=== PATIENT | male | born 1965 | race Caucasian/White ===

== ENCOUNTER 2019-10-24 07:53 | Day surgery (SDC) | payer BC, OTHER ==
[~2019-10-24 07:53] MED LIST: Lactated Ringers 1,000 ML IV SCH; Lidocaine 1% 4 ML ONE; Lidocaine 1%/Sod Bicarbonate in NS 8.4% 1 ML Syringe IDERM PRN; Midazolam 1 MG/ML 2 ML SDV ONE; Propofol 200 MG/20 ML SDV ONE; Sodium Chloride 0.9% 10 ML Syringe FLUSH PRN; ceFAZolin 1 GM Vial ONE; fentaNYL 100 MCG/2 ML SDV ONE
[2019-10-24] MEDS ORDERED: HYDROmorphone 0.5 MG/0.5 ML Syringe IVPUSH PRN (08:06)
[2019-10-24] MEDS ORDERED: fentaNYL 100 MCG/2 ML SDV IVPUSH PRN (08:06)
[2019-10-24] MEDS ORDERED: Bupivacaine 0.25% 10 ML SDV ONE (08:11)
--- NOTE | 2019-10-24 08:20 | PCM.PREANE ---
Preanesthetic Assessment - Anesthesia/Transfusion/Family Hx Anesthesia History: Prior Anesthesia Without Reaction Transfusion History: No Prior Transfusion(s) - Review of Systems General: No Symptoms Pulmonary: No Symptoms Cardiovascular: No Symptoms Gastrointestinal: No Symptoms Neurological: No Symptoms Other: Reports: None - Physical Assessment Vital Signs: Last Vital Signs Temp 97.2 F 10/24/19 07:50 Pulse 74 10/24/19 07:50 Resp 16 10/24/19 07:50 BP 121/80 10/24/19 07:50 Pulse Ox 94 L 10/24/19 07:50 ASA Class: 2 Mental Status: Alert & Oriented x3 Airway Class: Mallampati = 3 Dentition: Reports: Normal Dentition, Torreon(s), Bridge Thyro-Mental Finger Breadths: 3 Mouth Opening Finger Breadths: 3 ROM/Head Extension: Full Lungs: Clear to Auscultation, Normal Respiratory Effort Cardiovascular: Regular Rate, Regular Rhythm - Lab Values: Laboratory Last Values SARS Virus RNA (PCR) Negative (NEGATIVE) 10/24/19 06:40 MRSA (PCR) Negative 10/10/19 14:54 - Allergies Allergies/Adverse Reactions: Allergies Allergy/AdvReac Type Severity Reaction Status Date / Time No Known Allergies Allergy Verified 10/23/19 12:44 - Acknowledgements Anesthesia Type Planned: General Anesthesia Pt an Appropriate Candidate for the Planned Anesthesia: Yes Alternatives and Risks of Anesthesia Discussed w Pt/Guardian: Yes Pt/Guardian Understands and Agrees with Anesthesia Plan: Yes PreAnesthesia Questionnaire Musculoskeletal History: Reports: Osteoarthritis Endocrine/Metabolic History: Reports: Obesity/BMI 30+ - Past Surgical History Musculoskeletal Surgical History: Reports: Arthroscopic Knee - SUBSTANCE USE Smoking Status *Q: Never Smoker Recreational Drug Use History: No - HOME MEDS Home Medications: Home Meds Cholecalciferol (Vitamin D3) [Vitamin D3] 5,000 units PO DAILY 10/23/19 [History] Multivitamin [Multivitamins] 1 cap PO DAILY 10/23/19 [History] Naproxen Sodium [Aleve] 220 mg PO DAILY 10/23/19 [History] Zinc 50 mg PO DAILY 10/23/19 [History] - CURRENT (IN HOUSE) MEDS Current Meds: Current Medications Fentanyl (Sublimaze) 100 mcg IVPUSH Q5M PRN PRN Reason: Pain Stop: 10/24/19 12:00 Hydromorphone HCl (Dilaudid) 0.5 mg IVPUSH Q10M PRN PRN Reason: Pain (severe 7-10) Stop: 10/24/19 12:00 Lactated Ringer's (Ringers, Lactated) 1,000 mls @ 125 mls/hr IV ASDIRECTED DUDLEY Stop: 10/24/19 23:00 Lidocaine/Sodium Bicarbonate (Buffered Lidocaine 1% In Ns 8.4%) 0.25 ml IDERM ONETIME PRN PRN Reason: Prior to IV Start Stop: 10/24/19 18:00 Sodium Chloride (Saline Flush) 10 ml FLUSH ASDIRECTED PRN PRN Reason: Keep Vein Open Stop: 10/24/19 18:00 Discontinued Medications Bupivacaine HCl (Sensorcaine-Mpf 0.25%) Confirm Administered Dose 30 ml .ROUTE .STK-MED ONE Stop: 10/24/19 08:12 Cefazolin Sodium (Ancef) Confirm Administered Dose 2 gm .ROUTE .STK-MED ONE Stop: 10/24/19 07:48 Fentanyl (Sublimaze) Confirm Administered Dose 100 mcg .ROUTE .STK-MED ONE Stop: 10/24/19 07:45 Lidocaine HCl (Xylocaine-Mpf 1%) Confirm Administered Dose 4 mls @ as directed .ROUTE .STK-MED ONE Stop: 10/24/19 07:48 Midazolam HCl (Versed 1 Mg/Ml) Confirm Administered Dose 2 mg .ROUTE .STK-MED ONE Stop: 10/24/19 07:45 Propofol (Diprivan 20 Ml) Confirm Administered Dose 200 mg .ROUTE .STK-MED ONE Stop: 10/24/19 07:44
[2019-10-24] MEDS ORDERED: fentaNYL 100 MCG/2 ML SDV ONE (08:23)
[2019-10-24] MEDS ORDERED: Midazolam 1 MG/ML 2 ML SDV ONE (08:23)
[2019-10-24] MEDS ORDERED: EPINEPHrine 1 MG/ML 30 ML MDV IV ONE (08:45)
[2019-10-24] MEDS ORDERED: Lidocaine 1% 4 ML ONE (08:51)
[2019-10-24] MEDS ORDERED: Ondansetron 4 MG/2 ML SDV ONE (09:07)
[2019-10-24] MEDS ORDERED: Lactated Ringers 1,000 ML ONE (09:21)
[2019-10-24] MEDS ORDERED: Lidocaine 2% with EPINEPHrine 1:200,000 20 ML SDV ONE (09:37)
--- NOTE | 2019-10-24 09:50 | PCM.POSTAN ---
POST ANESTHESIA ASSESSMENT - MENTAL STATUS Mental Status: Alert, Oriented - VITAL SIGNS Vital Signs: Last Vital Signs Temp 97.2 F 10/24/19 09:29 Pulse 67 10/24/19 09:44 Resp 16 10/24/19 09:44 BP 133/79 10/24/19 09:44 Pulse Ox 96 10/24/19 09:44 - RESPIRATORY Respiratory Status: Respiratory Rate WNL, Airway Patent, O2 Saturation Stable, Supplemental Oxygen - CARDIOVASCULAR CV Status: Pulse Rate WNL, Blood Pressure Stable - GASTROINTESTINAL GI Status: No Symptoms - PAIN Pain Score: 0 - POST OP HYDRATION Hydration Status: Adequate & Stable - OBSERVATIONS Free Text/Narrative:: bleeding frenulum abrasion under tongue, a gauze soaked in 2% lidocaine with 1:200k epi placed under tongue
--- NOTE | 2019-10-24 11:48 | PCM48HPAN ---
Post Anesthesia Note - EVALUATION WITHIN 48HRS OF ANESTHETIC Vital Signs in Normal Range: Yes Patient Participated in Evaluation: Yes Respiratory Function Stable: Yes Airway Patent: Yes Cardiovascular Function Stable: Yes Hydration Status Stable: Yes Pain Control Satisfactory: Yes Nausea and Vomiting Control Satisfactory: Yes Mental Status Recovered: Yes Vital Signs: Last Vital Signs Temp 97.2 F 10/24/19 09:29 Pulse 58 L 10/24/19 10:45 Resp 16 10/24/19 10:45 BP 129/93 H 10/24/19 10:45 Pulse Ox 95 10/24/19 10:45 - COMMENTS/OBSERVATIONS Free Text/Narrative:: Explanation given about the abrasion on the frenulum , to avoid hot and spicy food for the next couple of days. Patient is being discharged to home.
--- NOTE | 2019-10-30 07:22 | PCM.OPNOTE ---
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
--- NOTE | 2019-10-30 11:17 | OR ---
DATE OF OPERATION: 10/24/2019 SURGEON: Oscar Garner MD OPERATION PERFORMED: Right knee video arthroscopy, partial medial meniscectomy and chondroplasty of femoral condyle. PREOPERATIVE DIAGNOSIS: Right knee medial meniscus tear with medial compartmental chondromalacia. POSTOPERATIVE DIAGNOSIS: Right knee medial meniscus tear with medial compartmental chondromalacia. ANESTHESIA: General LMA with local. ANESTHESIA PROVIDER: Estuardo Causey CRNA COMPETITIVE ATHLETE: None. ESTIMATED BLOOD LOSS: 5 mL. COMPLICATIONS: None. CONDITION: Stable. DESCRIPTION OF PROCEDURE: The patient was identified in the preoperative holding area. Proper site was marked and identified by the surgeon. The patient was taken back to the operative theater, where after adequate anesthesia, the patient's left lower extremity was placed in a well leg north. Right lower extremity had a nonsterile tourniquet applied and was placed in a C-clamp north. Foot of the bed was then lowered. Right lower extremity was then sterilely prepped and draped in usual sterile fashion. OR time-out was then performed. The patient received 2 g IV Ancef. Right lower extremity was exsanguinated and tourniquet was insufflated to 250 mmHg. Standard anterior lateral portal incision was made. Scope trocar was introduced. The patient had a grade 2 chondromalacia of the patellofemoral joint. Attention was turned to the medial compartment. With the use of a spinal needle, anteromedial portal was created. The patient was noted to have a large amount of grade 4 chondromalacia with eburnated bone on the medial femoral condyle and a tear of the posterior 3rd horn of the medial meniscus. At this time, a partial medial meniscectomy of the entire posterior 3rd of the horn of the medial meniscus was undertaken and a chondroplasty of the medial femoral condyle and any loose cartilaginous flaps was done. ACL was intact in the notch. Lateral compartment showed minimal to no changes. Excess saline was drained from the knee. 3-0 nylon suture was used for closure of the skin. The patient tolerated the procedure well and was sent to PACU in stable condition. MMODAL /[id number]
== END 2019-10-24 11:45 | disposition home or self-care (01) ==
LOC: JD.SDS 07:53
PROVIDERS: ATTEND Orthopaedic Surgery
DX: S83.241A Other tear of medial meniscus, current injury, right knee, initial encounter (principal); M22.41 Chondromalacia patellae, right knee; E66.9 Obesity, unspecified; F32.9 Major depressive disorder, single episode, unspecified; Z11.59 Encounter for screening for other viral diseases; Z79.899 Other long term (current) drug therapy; Z68.31 Body mass index [BMI] 31.0-31.9, adult
CPT/HCPCS: 29881; 87635; 87641; J0171; J0690; J2001; J2250; J2405; J2704; J3010; J3490; J7120; 01400; U0002

== ENCOUNTER → 2020-02-25 | Day surgery (SDC) | payer BC ==
[~2020-02-25] MED LIST changes: +Acetaminophen 325 MG Tab PO SCH; +EPINEPHrine 1 MG/ML SDV ONE; +Ketorolac 30 MG/ML SDV ONE; -Lactated Ringers 1,000 ML IV SCH; +Lactated Ringers 1,000 ML ONE; +Morphine 8 MG, EPINEPHrine 0.3 MG, Cefuroxime 750 MG, Ketorolac 30 MG, Sodium Chloride ... PRN; +Ondansetron 4 MG/2 ML SDV IVPUSH PRN; +Ondansetron 4 MG/2 ML SDV ONE; +Pregabalin 25 MG Cap PO SCH; +Ropivacaine 0.5% 5 MG/ML 30 ML SDV ONE; +ePHEDrine Sulfate/0.9% NaCl/Pf 25 MG/5 ML SYRINGE IV ONE; +fentaNYL 100 MCG/2 ML SDV IVPUSH PRN; +oxyCODONE 5 MG Tab PO PRN; +oxyCODONE ER 10 MG TAB.ER PO SCH
[2020-02-25] MEDS: Lactated Ringers 1,000 ML IV SCH ×2 (11:20→15:57)
--- NOTE | 2020-02-25 11:35 | PCM.PREANE ---
Preanesthetic Assessment - Anesthesia/Transfusion/Family Hx Anesthesia History: Prior Anesthesia Without Reaction Family History of Anesthesia Reaction: No Transfusion History: No Prior Transfusion(s) - Review of Systems General: No Symptoms Pulmonary: No Symptoms, Other (JARVIS) Cardiovascular: No Symptoms, Other (EKG demonstrates SB) Gastrointestinal: No Symptoms Neurological: No Symptoms Other: Reports: Depression - Physical Assessment NPO Status Date: 02/25/20 NPO Status Time: 01:00 Vital Signs: Last Vital Signs Temp 36.6 C 02/25/20 11:10 Pulse 74 02/25/20 11:10 Resp 16 02/25/20 11:10 BP 122/83 02/25/20 11:10 Pulse Ox 96 02/25/20 11:10 Height: 1.85 m Weight: 106.594 kg ASA Class: 2 Mental Status: Alert & Oriented x3 Airway Class: Mallampati = 2 Dentition: Reports: Normal Dentition Thyro-Mental Finger Breadths: 3 Mouth Opening Finger Breadths: 3 ROM/Head Extension: Full Lungs: Clear to Auscultation, Normal Respiratory Effort Cardiovascular: Regular Rate, Regular Rhythm - Lab Values: Laboratory Last Values MRSA (PCR) Negative 02/13/20 14:40 - Allergies Allergies/Adverse Reactions: Allergies Allergy/AdvReac Type Severity Reaction Status Date / Time No Known Allergies Allergy Verified 02/22/20 12:51 - Blood Blood Available: No Product(s) Available: None - Anesthesia Plan Pre-Op Medication Ordered: None - Acknowledgements Anesthesia Type Planned: Spinal Pt an Appropriate Candidate for the Planned Anesthesia: Yes Alternatives and Risks of Anesthesia Discussed w Pt/Guardian: Yes Pt/Guardian Understands and Agrees with Anesthesia Plan: Yes PreAnesthesia Questionnaire HEENT History: Reports: Hard of Hearing, Impaired Vision, Other (See Below) Other HEENT History: wears glasses Cardiovascular History: Reports: None Respiratory History: Reports: None Gastrointestinal History: Reports: None Genitourinary History: Reports: None PIERCING ARTIST History: Reports: None Musculoskeletal History: Reports: Other (See Below) Other Musculoskeletal History: left toe injury, right knee pain Neurological History: Reports: None Psychiatric History: Reports: Depression Endocrine/Metabolic History: Reports: None Hematologic History: Reports: None Immunologic History: Reports: None Oncologic (Cancer) History: Reports: None Dermatologic History: Reports: Other (See Below) Other Dermatologic History: left toe cutaneous abcess - Past Surgical History Head Surgeries/Procedures: Reports: None HEENT Surgical History: Reports: Other (See Below) Other HEENT Surgeries/Procedures: permanent bridge Cardiovascular Surgical History: Reports: None Respiratory Surgical History: Reports: None GI Surgical History: Reports: None Male Surgical History: Reports: Vasectomy Endocrine Surgical History: Reports: None Neurological Surgical History: Reports: None Musculoskeletal Surgical History: Reports: Arthroscopic Knee Oncologic Surgical History: Reports: None Dermatological Surgical History: Reports: None - SUBSTANCE USE Tobacco Use Status *Q: Former Tobacco User Recreational Drug Use History: No - HOME MEDS Home Medications: Home Meds Cholecalciferol (Vitamin D3) [Vitamin D3] 5,000 units PO DAILY 10/23/19 [History] Multivitamin [Multivitamins] 1 cap PO DAILY 10/23/19 [History] Zinc 50 mg PO DAILY 10/23/19 [History] Tamsulosin HCl [Flomax] 0.4 mg PO DAILY 02/22/20 [History] Aspirin [Aspirin EC] 325 mg PO BID #84 tab 02/25/20 [Rx] Cyclobenzaprine [Flexeril] 10 mg PO BID PRN #20 tab 02/25/20 [Rx] oxyCODONE 5 - 10 mg PO Q4H PRN #60 tab 02/25/20 [Rx] - CURRENT (IN HOUSE) MEDS Current Meds: Current Medications Acetaminophen (Tylenol) 975 mg PO ONETIME DUDLEY Stop: 02/25/20 13:00 Last Admin: 02/25/20 11:13 Dose: 975 mg Documented by: Morphine Sulfate 8 mg/Epinephrine HCl 0.3 mg/Cefuroxime Sodium 750 mg/Ketorolac Tromethamine 30 mg/Sodium Chloride 7.9 ml 0 mg .XX ASDIRECTED PRN PRN Reason: Pain Stop: 02/25/20 23:00 Lactated Ringer's (Ringers, Lactated) 1,000 mls @ 125 mls/hr IV ASDIRECTED DUDLEY Stop: 02/25/20 23:00 Lidocaine/Sodium Bicarbonate (Buffered Lidocaine 1% In Ns 8.4%) 0.25 ml IDERM ONETIME PRN PRN Reason: Prior to IV Start Stop: 02/25/20 18:00 Oxycodone HCl (Oxycontin) 10 mg PO ONETIME DUDLEY Stop: 02/25/20 13:00 Last Admin: 02/25/20 11:13 Dose: 10 mg Documented by: Pregabalin (Lyrica) 50 mg PO ONETIME DUDLEY Stop: 02/25/20 13:00 Last Admin: 02/25/20 11:13 Dose: 50 mg Documented by: Sodium Chloride (Saline Flush) 10 ml FLUSH ASDIRECTED PRN PRN Reason: Keep Vein Open Stop: 02/25/20 18:00 Discontinued Medications Bupivacaine HCl (Sensorcaine-Mpf 0.25%) Confirm Administered Dose 30 ml .ROUTE .STK-MED ONE Stop: 02/25/20 11:18 Morphine Sulfate 8 mg/Epinephrine HCl 0.3 mg/Cefuroxime Sodium 750 mg/Ketorolac Tromethamine 30 mg/Sodium Chloride 7.9 ml 0 mg .XX ASDIRECTED PRN PRN Reason: Pain Stop: 02/25/20 18:00 Epinephrine HCl (Adrenalin) Confirm Administered Dose 1 mg .ROUTE .STK-MED ONE Stop: 02/25/20 07:22 Ropivacaine (Naropin 0.5%) Confirm Administered Dose 30 ml .ROUTE .STK-MED ONE Stop: 02/25/20 07:22 Tranexamic Acid (Cyklokapron) Confirm Administered Dose 1,000 mg .ROUTE .STK-MED ONE Stop: 02/25/20 11:17 Vancomycin HCl (Vancomycin) Confirm Administered Dose 1 gm .ROUTE .STK-MED ONE Stop: 02/25/20 11:17
[2020-02-25] MEDS: Bupivacaine 0.25% 10 ML SDV ONE ×2 (13:13→13:38)
[2020-02-25] MEDS: Vancomycin 1 GM SDV ONE ×2 (13:14→13:50)
--- NOTE | 2020-02-25 14:14 | PCM.POSTAN ---
POST ANESTHESIA ASSESSMENT - MENTAL STATUS Mental Status: Alert, Oriented - VITAL SIGNS Vital Signs: Last Vital Signs Temp 36.6 C 02/25/20 11:10 Pulse 74 02/25/20 11:10 Resp 16 02/25/20 11:10 BP 122/83 02/25/20 11:10 Pulse Ox 96 02/25/20 11:10 - RESPIRATORY Respiratory Status: Respiratory Rate WNL, Airway Patent, O2 Saturation Stable - CARDIOVASCULAR CV Status: Pulse Rate WNL, Blood Pressure Stable - GASTROINTESTINAL GI Status: No Symptoms - POST OP HYDRATION Hydration Status: Adequate & Stable
--- NOTE | 2020-02-25 14:23 | PCM48HPAN ---
Post Anesthesia Note - EVALUATION WITHIN 48HRS OF ANESTHETIC Vital Signs in Normal Range: Yes Patient Participated in Evaluation: Yes Respiratory Function Stable: Yes Airway Patent: Yes Cardiovascular Function Stable: Yes Hydration Status Stable: Yes Pain Control Satisfactory: Yes Nausea and Vomiting Control Satisfactory: Yes Mental Status Recovered: Yes Vital Signs: Last Vital Signs Temp 36.4 C 02/25/20 14:09 Pulse 76 02/25/20 14:09 Resp 10 L 02/25/20 14:09 BP 91/63 02/25/20 14:09 Pulse Ox 92 L 02/25/20 14:09
--- NOTE | 2020-02-25 14:26 | PCM.SN.2 ---
- Free Text/Narrative Note: Right selective femoral nerve block at the adductor canal for post-procedure pain control under US guidance requested by Dr. Garner. Date: 02/25/20 Time Out: 1413 Start 1416 End: 1419 Chart reviewed. Consent signed. Questions answered. Appropriate monitors applied. Time out performed. Right mid-shaft femur identified with ultrasound, scanning medially of femur, the femoral artery in the adductor canal visualized, and the femoral nerve located laterally to the artery. The skin was prepped lateral to the ultrasound probe with chlorahexadine times two. The 21ga 4 insulated block needle was inserted under direct ultrasound guidance into the adductor canal. 25mL of 0.5% ropivacaine with 1:200,000 epinephrine was injected circumferentially around the nerve with intermittent negative aspiration noted. Patient tolerated the procedure well. Sterile technique noted along with sterile gloves, mask, and sterile probe cover. See picture on progress note and vital signs on nurses notes. Block completed in PACU. Jarrett Mobley CRNA
--- NOTE | 2020-02-28 14:59 | CR ---
PROCEDURE INFORMATION: Exam: XR Right Knee Exam date and time: 02/25/2020 2:13 PM Age: 54 years old Clinical indication: Screening exam; Post op pacu knee TECHNIQUE: Imaging protocol: XR Right knee. Views: 1 or 2 views. COMPARISON: CR Knee 3V Rt, Knee Standing AP Bi 03/07/2019 12:17 PM FINDINGS: Bones/joints: There has been a right knee arthroplasty with patellar resurfacing. There is no evidence of malalignment or dislocation. Gas is noted in the joint space compatible with recent surgery. An air-fluid level is seen in the suprapatellar bursa. Soft tissues: See "Bones/joints" finding. IMPRESSION: Right total knee prosthesis with expected intra-articular gas and fluid. Thank you for allowing us to participate in the care of your patient. Dictated and Authenticated by: Wilian Lawrence MD 02/25/2020 3:58 PM Central Time ([place] & [place]) [place]
--- NOTE | 2020-03-03 08:33 | PCM.OPNOTE ---
- General Post-Op/Procedure Note Date of Surgery/Procedure: 02/25/20 Operative Procedure(s): right total knee arthroplasty Pre Op Diagnosis: right knee osteoarthrosis Post-Op Diagnosis: Same Anesthesia Technique: Local, MAC, Spinal Primary Surgeon: Oscar Garner Anesthesia Provider: Jarrett Mobley Cottonseed Meat Presser: Dhara Morales Cottonseed Meat Presser: Judith Anguiano EBJesi in mLs: 300 Complications: None Condition: Good Free Text/Narrative:: 7 femur 6 tibia 9mm 35x10
--- NOTE | 2020-03-04 06:08 | OR ---
DATE OF OPERATION: 02/25/2020 SURGEON: Oscar Garner MD OPERATION PERFORMED: Right total knee arthroplasty. PREOPERATIVE DIAGNOSIS: Right knee osteoarthrosis. POSTOPERATIVE DIAGNOSIS: Right knee osteoarthrosis. ANESTHESIA: Local MAC with spinal. ANESTHESIA PROVIDER: Jarrett Mobley CRNA STOCK ROLLER: Dhara Morales PA-C; and Judith Anguiano LPN. ESTIMATED BLOOD LOSS: 300 mL. COMPLICATIONS: None. CONDITION: Stable. IMPLANTS: 1. [place] size 7 press-fit CR femur. 2. Anastasia size 6 press-fit tibial base plate. 3. [place] size 6 9 mm CS polyethylene insert. 4. Anastasia size 35 x 10 mm press fit asymmetric patella. DESCRIPTION OF PROCEDURE: The patient was identified in the preop holding area. Proper site was marked and identified by the surgeon. The patient was taken back to the operating theater. After adequate anesthesia, the patient's right lower extremity had a nonsterile tourniquet applied and it was sterilely prepped and draped in the usual sterile fashion. OR time-out was performed. The patient received 2 g IV Ancef. At this time, the right lower extremity was exsanguinated. Tourniquet was insufflated to 300 mmHg. Standard medial parapatellar incision was made. Medial parapatellar arthrotomy was created. Deep fibers of the MCL were raised and anterior fat pad was resected. At this time, attention was turned to the patella. Patella measured a 26, it was resected to a 15 for a 35 x 10 mm patella. Drill holes were then drilled and found to be in adequate position. The drill was then drilled in the distal femur and the intramedullary distal femoral cutting guide was then placed. 8 mm was resected off the distal femur and was found to be an adequate resection. Sizing guide was placed. It was found to be a size 7 press-fit CR femur that was shown on the implant record at the beginning of this dictation. The drill holes were drilled for the epicondylar axis using Whitesides line and epicondyles as reference. At this time, the 4-in-1 cutting block was placed. An anterior posterior and anterior and posterior chamfer cuts were then completed. Attention was turned to the tibia. The posterior medial lateral retractors were placed. The extramedullary tibial guide was placed. It was placed in the old footprint of the ACL. It was aligned with the center of the ankle and 0 degrees of slope, 9 mm was then resected off the unaffected side. There was found to be an acceptable reduction. At this time, posterior osteophytes were removed along with medial and lateral meniscus. A trial implant was placed with a correct sized tibia that was mentioned at the beginning of the dictation. A Anastasia size 6 9 mm CS polyethylene insert was then placed. The patient's knee was brought through range of motion. The patella was tracking centrally and was stable to varus and valgus stress. Alignment was found to be roughly at 0 degrees. The tibia was stamped and drilled in proper rotation. The universal tibial base plate was impacted in place. Next, the Anastasia size 7 press-fit CR femur impacted into place and the [place] size 6 9 mm CS polyethylene insert was placed. The patient's knee was brought into full extension. The patella was then press-fit in place at this time. Tourniquet was deflated. One liter dilute Betadine solution was irrigated through the knee along with 3 L of pulse lavage irrigation with Ancef. Periarticular injection was then completed. The patient's knee was brought through a range of motion. Once the cement had time to set up and it was found to be stable to varus valgus stress, the patella was tracking centrally with full range of motion. At this time, a #2 barbed suture was used for closure of the medial parapatellar arthrotomy. Topical tranexamic acid was placed. 2-0 Vicryl was used subcutaneously, Prineo was used for the skin. The patient tolerated the procedure well and was sent to the PACU in stable condition. MMODAL /[id number]
== END | disposition home or self-care (01) ==
LOC: EDSTATUS 08:00 → JD.SDS 11:00
PROVIDERS: ATTEND Orthopaedic Surgery
DX: M17.11 Unilateral primary osteoarthritis, right knee (principal); F32.9 Major depressive disorder, single episode, unspecified; Z87.891 Personal history of nicotine dependence
CPT/HCPCS: 27447; 73560; 87641; 97161; 97165; A9270; C1776; J0171; J0690; J0697; J1885; J2001; J2250; J2270; J2405; J2704; J2795; J3010; J3370; J3490; J7120; 01402; 64450